=== PATIENT | female | born 1955 | race Caucasian/White ===

== ENCOUNTER 2016-12-31 18:49 | Inpatient (IN) | payer OTHER ==
--- NOTE | ~2016-12-31 | DS ---
Discharge Summary [facility] [address] [place]. [address] NAME: BLANCO TORO : 53 STATUS : DIS IN PAT#: [id number] AGE: 61 ADM/REG DATE : 12/31/16 MR#: [id number] REPORT SERV DATE: 01/07/17 DICTATED BY: FLETCHER NAM DATE: 01/06/17 REPORT STATUS : Draft TRANSCRIBED BY: MODL DATE: 01/06/17 ADMISSION DATE: 12/31/2016 DISCHARGE DATE: 01/03/2017 Date of original admission, 12/31/2016; transferred to [facility], 12/31/2016; and transferred to the [facility] on 01/03/2017 alive. 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 She underwent chemotherapy both here and a clinical trial in [place] and continued to decline. She had progression of her tumor into her liver and intestinal carcinomatosis with ascites. She was having severe nausea and vomiting, and she had an NG tube and was supposed to get a PleurX catheter. We aggressively treated her with morphine, Ativan, Haldol for nausea, Decadron to try to swelling, and some octreotide. Her nausea got much better. We were able to get the NG tube out and after the PleurX catheter was put, we kept her one more day because that can re-upset her stomach; but after that, we were able to move her to the care center for additional care. 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 She was admitted GIP for control of symptoms of pain, nausea, and ascites. DICTATED BY: Fletcher Nam MD GP/ATUL Fletcher Nam MD / [id number] CC: MD ABE Bill
--- NOTE | ~2016-12-31 | HP ---
History And Physical [facility] [address] [place]. [address] NAME: BLANCO TORO : 53 STATUS : ADM IN [facility]#: [id number] AGE: 61 ADM/REG DATE : 12/31/16 MR#: [id number] REPORT SERV DATE: 01/01/17 DICTATED BY: FLETCHER ALEGRE DATE: 01/01/17 REPORT STATUS : Draft TRANSCRIBED BY: MODL DATE: 01/01/17 DATE OF ADMISSION: 12/31/2016 Date of transfer to [facility] is 12/31/2016. HISTORY OF PRESENT ILLNESS: The patient is a 61-year-old white female who went in for gallbladder surgery in July and was found out to have bile duct cancer. She received both chemotherapy here and was in a clinical trial in [place], for which she recently returned, having markedly declined. She now has progression of tumor into her liver and intestinal carcinomatosis with ascites. She has been changed to [facility] as of yesterday although she had a previously scheduled PleurX catheter to be placed this coming Monday, tomorrow. The patient has complained of abdominal pain, 8-10, due to the ascites. She has also had no bowel movement in two weeks. The patient does have an NG tube as well. PAST MEDICAL HISTORY: Otherwise unremarkable. ALLERGIES: SHE IS ALLERGIC TO SULFA. PAST SURGICAL HISTORY: She is status post hysterectomy and port. SOCIAL HISTORY: She is nonsmoker, nondrinker. [place]. 43 years. One child. She worked for over 26 years at [employer]. REVIEW OF SYSTEMS: She has had no appetite with a 20-pound weight loss. She has had dyspnea with exertion. Now, she is largely bed-bound due to her pronounced fatigue. She has pain diffusely all over as well as the abdomen as described above. She has had some edema in her legs, which is resolved because she has been in bed-bound. Rest of the review of systems is largely unremarkable. PHYSICAL EXAMINATION: VITAL SIGNS: Respirations 11, blood pressure 143/86, pulse 104. GENERAL: This is an emaciated white female with pronounced amount of ascites. HEENT: Pupils are equal. Extraocular motions are intact. Cranial nerves 2-12 are grossly intact. She has no perceptible carotid bruits or thyroid masses that are palpable. LUNGS: Clear without rales or wheezes. HEART: Regular rapid rhythm with no murmurs or gallops. ABDOMEN: Distended. I do not hear any bowel sounds. EXTREMITIES: She has no edema in her legs. RECTAL: Exam that was done yesterday by the nurse revealed no impacted stool. ASSESSMENT AND PLAN: This 61-year-old with rapidly progressing bile duct cancer. She is a GIP for nausea, vomiting, pain, and ascites. She already has scheduled to get a PleurX drain tomorrow and then her goal is to go home. History And Physical [address] [place]. [address] NAME: BLANCO TORO : 53 STATUS : ADM IN [facility]#: [id number] AGE: 61 ADM/REG DATE : 12/31/16 MR#: [id number] REPORT SERV DATE: 01/01/17 DICTATED BY: FLETCHER ALEGRE DATE: 01/01/17 REPORT STATUS : Draft TRANSCRIBED BY: ATUL DATE: 01/01/17 GP/ATUL Fletcher Alegre MD / [id number] CC: Fletcher Alegre MD
[~2016-12-31 18:49] MED LIST: AMB5 PO; ATV.5 PO; COMP10B PO; CREON PO; IMMUNOTHERAPY IV; MARI5 PO; NORCO1 TA1 PO; P10 PO; SANCUSO TOP; ZOFRAN8 PO; ZOL50 PO; [UNRECOGNIZED DRUG - OTHER] PO
== END 2017-01-03 15:54 | disposition hospice, inpatient (51) | DRG 436 ==
LOC: 4EA 18:49
PROC: 0W9G3ZZ Drainage of Peritoneal Cavity, Percutaneous Approach (ICD-10-PCS; principal; 2016-12-31)
DX: C24.0 Malignant neoplasm of extrahepatic bile duct (principal); R18.8 Other ascites
CPT/HCPCS: 49418; 99152; A9270-GY; C1729; C1769; J1630; J2250; J2405; J3010; Q9967